=== PATIENT | female | born 1980 | race African-American/Black ===

== ENCOUNTER 2016-07-29 06:41 | Emergency (ER) | payer SELFPAY ==
[2016-07-29 07:12] VITALS: TEMP 98; BMI 26.5
[2016-07-29] MEDS ORDERED: IBUPROFEN 600 MG TABLET (FP) PO ONE ×2 (10:04→10:18)
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
[2016-07-29 10:23] VITALS: BP 150/107; PULSE 95
== END 2016-07-29 10:23 | disposition home or self-care (01) ==
LOC: JER 06:41
DX: S40.021A Contusion of right upper arm, initial encounter (principal); Y04.2XXA Assault by strike against or bumped into by another person, initial encounter; Y93.89 Activity, other specified; Y92.89 Other specified places as the place of occurrence of the external cause; Y99.8 Other external cause status; Y07.03 Male partner, perpetrator of maltreatment and neglect
CPT/HCPCS: 84703; 99281-25